=== PATIENT | female | born 1945 | race Caucasian/White ===

== ENCOUNTER 2017-01-25 06:43 | Emergency (ER) | payer MEDICARE, BC ==
[~2017-01-25] VITALS: Ht 165.1 cm; Wt 84.0 kg
[~2017-01-25 06:43] MED LIST: ATENOLOL; HYDR-3498 PO; IMODIUM; LIPITOR
[2017-01-25 06:44] VITALS: Ht 165.1 cm; Wt 84.0 kg
--- NOTE | 2017-01-25 08:16 | RADRPT ---
PROCEDURE: XR Foot. CLINICAL INDICATION: Right foot pain, injury TECHNIQUE: 3 views of the right foot are available for review. COMPARISON: None available FINDINGS: There is a mildly displaced obliquely oriented fifth metatarsal neck and distal shaft fracture. Alignment is otherwise normal. There is moderate first metatarsophalangeal joint osteoarthrosis. There is soft tissue swelling of the forefoot laterally. IMPRESSION: 1. Acute mildly displaced obliquely oriented fifth metatarsal neck and distal shaft fracture. 2. Moderate first metatarsophalangeal joint osteoarthrosis. RPTAT: UU .Jeanmarie Quintana MD, Date Time Electronically viewed and signed by .Jeanmarie Quintana MD, on 01/25/2017 08:16 .Myles/
[2017-01-25] MEDS ORDERED: HYDR-906 PO (09:35)
--- NOTE | 2017-01-25 10:20 | ERD ---
ER Documentation Chief Complaint Date/Time DATE: 01/25/17 TIME: 10:03 Chief Complaint right foot pain/injury HPI 71-year-old female patient with past medical history of hypertension, hyperlipidemia presents to the ED for a right ankle injury. States that there was a step that she accidentally tripped on and hyper plantar flexed her right foot. Reports that the outer part of her right foot has the most pain. Describes the pain as sharp and rates it a 8 out of 10. States that the pain is worse with walking. Denies any head or neck injuries. Denies any loss of consciousness. Denies any fever, chills, nausea, vomiting, loss of sensation, loss of range of motion, weakness, numbness or tingling. ROS All systems reviewed and are negative except as per history of present illness. Medications Home Meds Active Scripts Hydrocodone/Acetaminophen ([place] 5-325 Tablet) 1 Each Tablet, 1 TAB PO QHS Y for PAIN, #7 TAB Prov:JOY DUFF PA-C 01/25/17 Hydrocodone Bit-Acetaminophen* ([place]*) 5-325 Mg Tab, 1 TAB PO DAILY Y for PAIN , #10 TAB 0 Refills Prov:SOUMYA MEHTA PA-C 03/11/15 Reported Medications [Imodium] No Conflict Check 01/30/11 [Lipitor] No Conflict Check 01/30/11 [Atenolol] No Conflict Check 01/30/11 Allergies Allergies: Coded Allergies: No Known Drug Allergies (Verified Allergy, Unknown, 03/11/15) PMhx/Soc History of Surgery: Yes (OVARY REMOVED, BREAST TUMOR BENIGN) Anesthesia Reaction: No Hx Neurological Disorder: No Hx Respiratory Disorders: No Hx Cardiac Disorders: Yes (HTN) Hx Psychiatric Problems: No Hx Miscellaneous Medical Probl: No Hx Alcohol Use: No Hx Substance Use: No Hx Tobacco Use: No Physical Exam Vitals Vital Signs Date Time Temp Pulse Resp B/P Pulse Ox O2 Delivery O2 Flow Rate FiO2 01/25/17 06:44 98.0 68 19 146/77 96 Physical Exam Const: [id number], well-nourished. In no acute distress. Head: Atraumatic, normocephalic Eyes: Normal Conjunctiva without injection ENT: Normal external ear, nose and mouth. Neck: Full range of motion. No meningismus. Resp: Clear to auscultation bilaterally. No wheezing, rhonchi, rales, or crackles. No accessory muscle use. No retractions. Cardio: Regular rate and rhythm, no murmurs Skin: No petechiae or rashes Back: No midline tenderness. No CVA tenderness. Ext: No cyanosis, or edema. Cap refill less than 2 seconds. Distal pulses intact bilaterally. Tenderness to palpation of the lateral aspect of patient' s fifth metatarsal. Ecchymosis noted over the dorsal aspect of patient's right foot. Full range of motion with flexion, extension. Tenderness with inversion. No erythema or deformities. Neur: Awake and alert. Limping Gait. Normal coordination.. Muscle strength 5/ 5. Sensation intact bilaterally. Psych: Normal Mood and Affect Procedures/MDM 41-year-old female patient with a past medical history of hypertension, hyperlipidemia presents to the ED complaining of a right foot injury. Patient is afebrile and nontoxic-appearing. Patient has normal vital signs. PROCEDURE: XR Foot. CLINICAL INDICATION: Right foot pain, injury TECHNIQUE: 3 views of the right foot are available for review. COMPARISON: None available FINDINGS: There is a mildly displaced obliquely oriented fifth metatarsal neck and distal shaft fracture. Alignment is otherwise normal. There is moderate first metatarsophalangeal joint osteoarthrosis. There is soft tissue swelling of the forefoot laterally. IMPRESSION: 1. Acute mildly displaced obliquely oriented fifth metatarsal neck and distal shaft fracture. 2. Moderate first metatarsophalangeal joint osteoarthrosis. Patient is placed in a walking boot of right foot. Nonweightbearing of right foot recommended. Patient were given to help patient with ambulation. Splint Assessment: Neurovascularly intact pre and post splint placement with good fit. Patient's extremity symptoms have stabilized while they have been evaluated in the department and are appropriate for outpatient follow up. No evidence of fractures, dislocations, compartment syndrome, neurologic injury, vascular injury, open joint, open fracture, tendon laceration, septic arthritis, osteomyelitis, DVT, foreign body, or other emergent conditions. Discussed with my supervising physician, Dr. Lawrence agreed with the management and discharge plan. Discharge medications: [place]. No driving or operating heavy machinery. Follow up with orthopedic physician tomorrow for further evaluation and treatment. Instructed patient to return to the ED sooner for any worsening symptoms. Patient's questions were answered. Patient understood and agreed with discharge plan. Patient discharged stable. Disclaimer: Inadvertent spelling and grammatical errors are likely due to EHR/ dictation software use and do not reflect on the overall quality of patient care. Also, please note that the electronic time recorded on this note does not necessarily reflect the actual time of the patient encounter. Departure Diagnosis: Primary Impression: Injury of foot Encounter type: initial encounter Laterality: right Qualified Code: S99.921A - Injury of right foot, initial encounter Condition: Stable Patient Instructions: Fracture, Foot Referrals: JAMES PAYNE (PCP) [facility] YOU HAVE RECEIVED A MEDICAL SCREENING EXAM AND THE RESULTS INDICATE THAT YOU DO NOT HAVE A CONDITION THAT REQUIRES URGENT TREATMENT IN THE EMERGENCY DEPARTMENT. FURTHER EVALUATION AND TREATMENT OF YOUR CONDITION CAN WAIT UNTIL YOU ARE SEEN IN YOUR DOCTORS OFFICE WITHIN THE NEXT 1-2 DAYS. IT IS YOUR RESPONSIBILITY TO MAKE AN APPOINTMENT FOR FOLOW-UP CARE. IF YOU HAVE A PRIMARY DOCTOR --you should call your primary doctor and schedule an appointment IF YOU DO NOT HAVE A PRIMARY DOCTOR YOU CAN CALL OUR PHYSICIAN REFERRAL HOTLINE AT IF YOU CAN NOT AFFORD TO SEE A PHYSICIAN YOU CAN CHOSE FROM THE FOLLOWING [facility] [address] [facility]. [facility] [address] [facility] [facility] [address] [facility] [address] [facility] [address] [facility] [facility]. [address] [facility]. [facility] YOU HAVE RECEIVED A MEDICAL SCREENING EXAM AND THE RESULTS INDICATE THAT YOU DO NOT HAVE A CONDITION THAT REQUIRES URGENT TREATMENT IN THE EMERGENCY DEPARTMENT. FURTHER EVALUATION AND TREATMENT OF YOUR CONDITION CAN WAIT UNTIL YOU ARE SEEN IN YOUR DOCTORS OFFICE WITHIN THE NEXT 1-2 DAYS. IT IS YOUR RESPONSIBILITY TO MAKE AN APPOINTMENT FOR FOLOW-UP CARE. IF YOU HAVE A PRIMARY DOCTOR --you should call your primary doctor and schedule and appointment IF YOU DO NOT HAVE A PRIMARY DOCTOR YOU CAN CALL OUR PHYSICIAN REFERRAL HOTLINE AT . IF YOU CAN NOT AFFORD TO SEE A PHYSICIAN YOU CAN CHOSE FROM THE FOLLOWING [facility], [facility] IN[facility]: [facility] [address] [place] [address] [facility] [address] [place] [address] [facility] [address] [place] [address] [facility] 7 a.m.- 11 p.m. Every Day of the Week NO APPOINTMENT OR AUTHORIZATION NEEDED [facility] Hours: Mon-Fri 9:00 AM - 5:00 PM Additional Instructions: Non-weight bearing of right foot recommended. FOLLOW UP WITH ORTHOPEDIC PHYSICIAN TOMORROW.Return to this facility if you are not improving as expected - increased redness, swelling, fever, etc. JOY DUFF PA-C Jan 25, 2017 10:19
== END 2017-01-25 09:51 | disposition home or self-care (01) ==
LOC: FTE 06:43
DX: S99.921A Unspecified injury of right foot, initial encounter (principal); I10 Essential (primary) hypertension; W18.49XA Other slipping, tripping and stumbling without falling, initial encounter; Y92.9 Unspecified place or not applicable
CPT/HCPCS: 73630

== ENCOUNTER 2018-03-07 01:12 | Emergency (ER) | END 2018-03-07 01:50 | disposition home or self-care (01) ==